=== PATIENT | female | born 1955 | race Caucasian/White ===

== ENCOUNTER → 2017-10-12 | Outpatient (CLI) | payer BC, OTHER ==
[~2017-10-12] MED LIST: AMBIEN 10 MG TA10 MG PO; B-12500 MCG PO; BENICAR HCT 201 EACH PO; CARISOPRODOL 3350 MG PO; CYMBALTA60 MG PO; DICLOFENAC PO; DICLOFENAC SODI75 MG PO; FLEXERIL PO; HYDROCODON-ACE1 EAC4 PO; HYDROCODON-ACE1 EAC5 PO; LORTAB; NORCO 10-325 T1 EACH PO; PERCOCET PO; PREDNISONE50 MG PO; SYNTHROID50 MCG PO; SYNTHROID75 MCG; TRAMADOL 50 MG50 MG PO; VITAMIN D1000 UNI1 PO; VOLTAREN75 MG PO; XANAX 0.25 MG0.25 MG PO; ZOCOR 20 MG TAB20 M1 PO; ZOCOR PO; ZOCOR20 MG PO
== END ==
LOC: RAD 13:35
DX: Z12.31 Encounter for screening mammogram for malignant neoplasm of breast (principal)

== ENCOUNTER → 2019-05-09 | Outpatient (CLI) | payer BC, OTHER | LOC: CAT 04-25 14:14 | DX: I11.9 Hypertensive heart disease without heart failure (principal); E78.5 Hyperlipidemia, unspecified ==

== ENCOUNTER → 2019-06-08 | Outpatient (CLI) | payer BC, OTHER | LOC: ULTRA 05-23 14:06 | DX: K76.9 Liver disease, unspecified (principal) ==